=== PATIENT | male | born 1970 | race Native Hawaiian/Other Pacific Islander ===

== ENCOUNTER 2018-07-31 18:44 | Emergency (ER) | payer MEDICARE, OTHER ==
[2018-07-31] MEDS ORDERED: AMOXICILLIN/POT 875/125 1 EACH PO ONE (19:04)
--- NOTE | 2018-07-31 19:10 | ED Physician Documentation ---
Sore Throat/Dental Pain - HPI Stated Complaint: Right facial swelling Chief Complaint: Dental Pain Onset: days ago (2) Context: Fractured Tooth, Dental Caries Associated Symptoms: chills Worsened By: cold Further Comments: no - ROS CONST: no problems CVS/RESP: denies: chest pain, shortness of breath GI/: denies: nausea, vomiting MS/SKIN/LYMPH: denies: rash NEURO/PSYCH: headache - PAST HX Past History: none Other History: other (renal cell carcinoma) Allergies/Adverse Reactions: Allergies Allergy/AdvReac Type Severity Reaction Status Date / Time No Known Allergies Allergy Verified 07/31/18 19:06 Home Medications: Ambulatory Orders Medication Instructions Recorded Hydrocodone/Acetaminophen [Dorset 1 tab PO Q4H PRN #10 07/31/18 5-325 Tablet] Penicillin V Potassium [Pen V K] 500 mg PO TID #42 tablet 07/31/18 - SOCIAL HX Smoking History: greater than 1 pack/day Drug Use: none - FAMILY HX Family History: No - VITAL SIGNS Vital Signs: Vital Signs Temp Pulse Resp BP Pulse Ox 98.5 F 80 19 159/105 97 07/31/18 18:58 07/31/18 18:58 07/31/18 18:58 07/31/18 18:58 07/31/18 18:58 - REVIEWED ASSESSMENTS Nursing Assessment Reviewed: Yes ED Results Lab/Radiology - Orders Orders: ED Orders Category Date Time Status Amoxicillin/Potassium Clav [Augmentin 875Mg/125Mg] Med 07/31/18 19:04 Once 1 each PO NOW ONE Dental Pain Physical Exam - EXAM General Appearance: no acute distress, alert Head/Neck: no lymphadenopathy Eyes: PERRL Mouth/Throat: dental tenderness (right upper) Ear/Nose: nml inspection Respiratory: no resp. distress, breath sounds nml CVS: reg. rate & rhythm, heart sounds nml Abdomen: soft, normal bowel sounds Extremities: non-tender Skin: warm/dry, normal color Neuro/Psych: No: weakness Discharge Clincal Impression: Dental abscess Prescriptions: Hydrocodone/Acetaminophen [Dorset 5-325 Tablet] 1 tab PO Q4H PRN #10 PRN Reason: Pain Penicillin V Potassium [Pen V K] 500 mg PO TID #42 tablet Referrals: Primary Doctor,No [Primary Care Provider] - 2 Days Additional Instructions: Take all medications as prescribed. Follow up with a dentist as soon as possible to have teeth removed. Decision to Admit: NO Date of Decison to Admit: 07/31/18 Decision Time: 19:25
[2018-07-31] MEDS ORDERED: HYDROcodone /APAP 5/325 1 EACH TABLET PO ONE (19:14)
[2018-07-31 19:35] VITALS: BP 148/89
== END 2018-07-31 19:34 | disposition home or self-care (01) ==
LOC: ED 18:44
DX: K04.7 Periapical abscess without sinus (principal)
CPT/HCPCS: A9270-GY

== ENCOUNTER 2018-09-29 19:06 | Emergency (ER) | payer OTHER ==
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
[2018-09-29] MEDS: DIPH,PERTUSS(ACELL),TET VAC/PF 0.5 ML DISP.SYRIN IM ONE (19:34)
[2018-09-29 20:43] VITALS: BP 138/84
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
== END 2018-09-29 20:40 | disposition home or self-care (01) ==
LOC: ED 19:06
DX: S61.212A Laceration without foreign body of right middle finger without damage to nail, initial encounter (principal); W23.0XXA Caught, crushed, jammed, or pinched between moving objects, initial encounter; Y92.9 Unspecified place or not applicable
CPT/HCPCS: 12002; 73130; 90471; 90715; 99282; 99284